=== PATIENT | male | born 1945 | race Caucasian/White ===

== ENCOUNTER 2018-07-04 13:13 | Emergency (ER) | payer MEDICARE, OTHER ==
[2018-07-04 13:38] LABS: BASE EXCESS ARTERIAL -1 mmol/L ((-2)-(+3)); BICARBONATE,ARTERIAL 22.6 mmol/L (22-26); O2 DELIVERY DEVICE NASAL CANNULA; O2 SATURATION ARTERIAL 98 % (95-100); PCO2 ARTERIAL 34 mmHg (35-45); PO2 ARTERIAL 79 mmHg (70-100)
[2018-07-04 13:39] LABS: ALLEN TEST POSITIVE
[2018-07-04 13:58] LABS: ANION GAP 11.1; CHLORIDE,CL 105 mmol/L (101-111); SODIUM,NA 139 mmol/L (135-145)
--- NOTE | 2018-07-04 14:06 | EDM.PDOC ---
ED HPI GENERAL MEDICAL PROBLEM - General Chief Complaint: Respiratory Problem Stated Complaint: CO2 EXPOSURE Time Seen by Provider: 07/04/18 13:25 Source of Information: Reports: Patient, Family, RN, RN Notes Reviewed History Limitations: Reports: No Limitations - History of Present Illness INITIAL COMMENTS - FREE TEXT/NARRATIVE: Pt to ER with family with c/o SOB. Patient states he and his were exposed to carbon monoxide in their camper in the night, as the detector alarmed twice. Patient states he has COPD and has had some increased SOB today and would like to be checked out. Denies fever, pain, chest pain, N/V/D. Onset: Today, Sudden - Related Data Allergies Allergy/AdvReac Type Severity Reaction Status Date / Time No Known Allergies Allergy Verified 07/04/18 13:53 Home Meds: Home Meds . [Unable to Verify Home Med List] 07/04/18 [History] Past Medical History Respiratory History: Reports: COPD Musculoskeletal History: Reports: Osteoarthritis, RA Neurological History: Reports: Neuropathy, Peripheral Social & Family History - Tobacco Use Smoking Status *Q: Former Smoker Years of Tobacco use: 20 Used Tobacco, but Quit: Yes Month/Year Tobacco Last Used: 1996 - Recreational Drug Use Recreational Drug Use: No ED ROS GENERAL - Review of Systems Review Of Systems: ROS reveals no pertinent complaints other than HPI. ED EXAM, GENERAL - Physical Exam Exam: See Below Exam Limited By: No Limitations General Appearance: Alert, WD/WN, No Apparent Distress Eye Exam: Bilateral Eye: EOMI, Normal Inspection Ears: Normal External Exam, Hearing Grossly Normal Nose: Normal Inspection Throat/Mouth: Normal Inspection, Normal Voice, No Airway Compromise Head: Atraumatic, Normocephalic Neck: Normal Inspection, Supple, Non-Tender, Full Range of Motion Respiratory/Chest: No Respiratory Distress, Lungs Clear, Normal Breath Sounds, No Accessory Muscle Use, Chest Non-Tender Cardiovascular: Normal Peripheral Pulses, Regular Rate, Rhythm, No Edema, No Gallop, No JVD, No Murmur, No Rub Peripheral Pulses: 2+: Radial (L), Radial (R) GI/Abdominal: Normal Bowel Sounds, Soft, Non-Tender (Male) Exam: Deferred Rectal (Males) Exam: Deferred Back Exam: Normal Inspection, Full Range of Motion, NT Extremities: Normal Inspection, Normal Range of Motion, Non-Tender, Normal Capillary Refill, No Pedal Edema Neurological: Alert, Oriented, Normal Cognition, Normal Gait, No Motor/Sensory Deficits Psychiatric: Normal Affect, Normal Mood Skin Exam: Warm, Dry, Intact, Normal Color, No Rash Lymphatic: No Adenopathy Course - Vital Signs Last Recorded V/S: Last Vital Signs Temp 98.8 F 07/04/18 13:20 Pulse 89 07/04/18 13:20 Resp 16 07/04/18 13:20 BP 158/63 H 07/04/18 13:20 Pulse Ox 96 07/04/18 13:20 - Orders/Labs/Meds Orders: Active Orders 24 hr Category Date Time Status CARBOXYHEMOGLOBIN [REF] Stat Lab 07/04/18 13:24 Ordered Labs: Laboratory Tests 07/04/18 07/04/18 07/04/18 Range/Units 13:23 13:31 13:31 WBC 4.8 L (5.0-10.0) 10^3/uL RBC 4.72 (4.6-6.2) 10^6/uL Hgb 14.2 (14.0-18.0) g/dL Hct 43.4 (40.0-54.0) % MCV 91.9 (80-100) fL MCH 30.1 (27.0-34.0) pg MCHC 32.7 L (33.0-35.0) g/dL Plt Count 154 (150-450) 10^3/uL Neut % (Auto) 72.1 (42.2-75.2) % Lymph % (Auto) 12.7 L (20.5-50.1) % [place] % (Auto) 11.0 H (2-8) % Eos % (Auto) 4.0 H (1.0-3.0) % Baso % (Auto) 0.2 (0.0-1.0) % ABG pH 7.44 (7.35-7.45) ABG pCO2 34 L (35-45) mmHg ABG pO2 79 (70-100) mmHg ABG HCO3 22.6 (22-26) mmol/L ABG O2 Saturation 98 (95-100) % ABG Base Excess -1 ((-2)-(+3)) mmol/L Jose Alejandro Test Positive O2 Delivery Device Nasal cannula Sodium 139 (135-145) mmol/L Potassium 4.1 (3.6-5.0) mmol/L Chloride 105 (101-111) mmol/L Carbon Dioxide 27.0 (21.0-31.0) mmol/L Anion Gap 11.1 BUN 15 (7-18) mg/dL Creatinine 1.0 (0.6-1.3) mg/dL Est Cr Clr Drug Dosing 72.16 mL/min Estimated GFR (MDRD) > 60 BUN/Creatinine Ratio 15.00 Glucose 121 H (74-105) mg/dL Calcium 9.5 (8.4-10.2) mg/dl Total Bilirubin 0.6 (0.2-1.0) mg/dL AST 31 (10-42) IU/L ALT 26 (10-60) IU/L Alkaline Phosphatase 69 (42-121) IU/L B-Natriuretic Peptide 49 (0-100) pg/ml Total Protein 7.2 (6.7-8.2) g/dl Albumin 4.2 (3.2-5.5) g/dl Globulin 3.0 Albumin/Globulin Ratio 1.40 - Radiology Interpretation Free Text/Narrative:: Chest xray: IMPRESSION: Patchy airspace opacity noted within the right middle lobe with elevation of the right hemidiaphragm anteriorly. Findings consistent with atelectasis or developing pneumonia. Followup imaging is recommended until completely clear. Thank you for allowing us to participate in the care of your patient. Dictated and Authenticated by: Pollo To DO 07/04/2018 1:59 PM Central Time ([place] & [place]) See rad report Departure - Departure Time of Disposition: 14:13 Disposition: Home, Self-Care 01 Condition: Fair Clinical Impression: COPD exacerbation Pneumonia Qualifiers: Pneumonia type: due to unspecified organism Laterality: right Lung location: unspecified part of lung Qualified Code(s): J18.9 - Pneumonia, unspecified organism - Discharge Information *PRESCRIPTION DRUG MONITORING PROGRAM REVIEWED*: No *COPY OF PRESCRIPTION DRUG MONITORING REPORT IN PATIENT YEN: No Instructions: Chronic Obstructive Pulmonary Disease Exacerbation, [id number] , Shortness of Breath, Adult, [id number], Chronic Obstructive Pulmonary Disease, [id number], Community-Acquired Pneumonia, Adult, [id number] Referrals: PCP,None [Primary Care Provider] - Forms: ED Department Discharge Additional Instructions: RX: Azithromycin Follow up with your primary care facility - My Orders Last 24 Hours: My Active Orders 07/04/18 13:24 CARBOXYHEMOGLOBIN [REF] Stat - Assessment/Plan Last 24 Hours: My Active Orders 07/04/18 13:24 CARBOXYHEMOGLOBIN [REF] Stat
== END 2018-07-04 14:27 | disposition home or self-care (01) ==
LOC: DL.ED 13:13
DX: J44.1 Chronic obstructive pulmonary disease with (acute) exacerbation (principal); J18.9 Pneumonia, unspecified organism; Z87.891 Personal history of nicotine dependence
CPT/HCPCS: 36415; 36600; 71046; 80053; 82375; 82803; 83880; 85025; 99283; 99285